=== PATIENT | female | born 1960 | race African-American/Black ===

== ENCOUNTER 2017-04-07 17:14 | Emergency (ER) | payer MEDICAID ==
[~2017-04-07] VITALS: Ht 167.6 cm; Wt 115.0 kg
[~2017-04-07 17:14] MED LIST: CYCL1TAB29 PO; IBUP800T23 PO; RANI150T PO
[2017-04-07 17:43] VITALS: PULSE 94; RESP 18; TEMP 98.7; O2SAT 93
[2017-04-07] MEDS ORDERED: SODIUM CHLORIDE 0.9% FLUSH 10 ML FLUSH IVF PRN (18:15)
[2017-04-07] MEDS ORDERED: MORPHINE SULFATE 8 MG/ML INJ IV PUSH ONE (18:15)
[2017-04-07] MEDS ORDERED: ONDANSETRON HCL 4 MG/2 ML VIAL IV PUSH ONE (18:15)
--- NOTE | 2017-04-07 18:26 | PD ---
HPI . Left hip pain Chief Complaint: Syncope/Near-Syncope Time Seen by Provider: 18:05 Travel History International Travel<30 days: No Contact w/Intl Traveler<30days: No Traveled to known affect area: No History of Present Illness HPI This patient presents with a chief complaint of left hip pain. She states that she was out in the heat all morning was standing in line for food at the [facility] at about 11 AM. She states that she became very nauseous and dizzy and passed out. She fell and landed on her left hip. She comes in complaining with pain in the hip. She states that she has arthritis in her left hip and needs to have a hip replacement. The fall today exacerbated her chronic pain. She states that she went home and took a nap after the syncopal event. She awakened with the pain and presented to us for treatment at that time. She denies any chest pain or shortness of breath. She does not have a headache. No blurred vision. PFSH Past Medical History Hx Anticoagulant Therapy: No Arthritis: Yes (RA TO HIP) Cardiovascular Problems: No Chemotherapy: No Cerebrovascular Accident: No Diabetes: No Diminished Hearing: No Respiratory: No ?: Not Menopausal: Yes : 3 Para: 3 Miscarriage: 0 : 0 Tubal Ligation: Yes Past Surgical History Gynecologic Surgery: Yes (TUBAL ) Hysterectomy: No Social History Alcohol Use: Yes (OCCAS) Tobacco Use: Yes Substance Use: No (MARAJUIANA ) Allergies-Medications (Allergen,Severity, Reaction): Coded Allergies: No Known Allergies (Verified , 10/19/16) Reported Meds & Prescriptions Reported Meds & Active Scripts Active Ultram (Tramadol HCl) 50 Mg Tab 50 Mg PO Q4H PRN Ranitidine (Ranitidine HCl) 150 Mg Tab 150 Mg PO BID Flexeril (Cyclobenzaprine HCl) 10 Mg Tab 10 Mg PO TID Ibuprofen 800 Mg Tab 800 Mg PO Q8H PRN Review of Systems Except as stated in HPI: all other systems reviewed are Neg General / Constitutional: No: Fever, Chills Eyes: No: Blurred Vision HENT: Positive: Lightheadedness, No: Headaches Cardiovascular: No: Chest Pain or Discomfort Respiratory: No: Shortness of Breath Gastrointestinal: Positive: Nausea, No: Vomiting (nausea prior to the syncopal event. None now.), Diarrhea Musculoskeletal: Positive: Arthralgias Neurologic: Positive: Syncope Physical Exam Narrative GENERAL: Patient was sleeping in no acute distress. She was easily arousable and interacted appropriately with the examiner when she was awakened. SKIN: Warm and dry. HEAD: Atraumatic. Normocephalic. EYES: Pupils equal and round. Extraocular movements intact. ENT: No nasal bleeding or discharge. Mucous membranes pink and moist. NECK: Trachea midline. Neck supple. CARDIOVASCULAR: Regular rate and rhythm. RESPIRATORY: No accessory muscle use. GASTROINTESTINAL: Abdomen soft, non-tender, nondistended. MUSCULOSKELETAL: No obvious deformities. No edema. Tender in the left groin. Pain with log rolling of the left hip. No shortening or malrotation. Distally neurovascularly intact. NEUROLOGICAL: Awake and alert. No obvious cranial nerve deficits. Motor grossly within normal limits. Normal speech. PSYCHIATRIC: Appropriate mood and affect; insight and judgment normal. Data Data Last Documented VS Vital Signs Date Time Temp Pulse Resp B/P (MAP) Pulse Ox O2 Delivery O2 Flow Rate FiO2 04/07/17 20:08 98.6 89 17 131/71 (91) 94 04/07/17 17:43 Room Air Orders Orders Electrocardiogram (04/07/17 18:09) Basic Metabolic Panel (Bmp) (04/07/17 18:09) Complete Blood Count With Diff (04/07/17 18:09) Iv Access Insert/Monitor (04/07/17 18:09) Sodium Chloride 0.9% Flush (Ns Flush) (04/07/17 18:15) Hip, Uni(Ap&Lat) W Ap Pelvis (04/07/17 18:09) Morphine Inj (Morphine Inj) (04/07/17 18:15) Ondansetron Inj (Zofran Inj) (04/07/17 18:15) Labs Laboratory Tests Test 04/07/17 18:16 White Blood Count 9.5 TH/MM3 Red Blood Count 4.48 MIL/MM3 Hemoglobin 12.9 GM/DL Hematocrit 38.3 % Mean Corpuscular Volume 85.6 FL Mean Corpuscular Hemoglobin 28.8 PG Mean Corpuscular Hemoglobin Concent 33.6 % Red Cell Distribution Width 14.0 % Platelet Count 338 TH/MM3 Mean Platelet Volume 8.8 FL Neutrophils (%) (Auto) 70.5 % Lymphocytes (%) (Auto) 20.7 % Monocytes (%) (Auto) 6.5 % Eosinophils (%) (Auto) 1.7 % Basophils (%) (Auto) 0.6 % Neutrophils # (Auto) 6.7 TH/MM3 Lymphocytes # (Auto) 2.0 TH/MM3 Monocytes # (Auto) 0.6 TH/MM3 Eosinophils # (Auto) 0.2 TH/MM3 Basophils # (Auto) 0.1 TH/MM3 CBC Comment DIFF FINAL Differential Comment Blood Urea Nitrogen 21 MG/DL Creatinine 1.71 MG/DL Random Glucose 98 MG/DL Calcium Level 9.3 MG/DL Sodium Level 138 MEQ/L Potassium Level 4.1 MEQ/L Chloride Level 105 MEQ/L Carbon Dioxide Level 23.8 MEQ/L Anion Gap 9 MEQ/L Estimat Glomerular Filtration Rate 38 ML/MIN MDM Medical Decision Making Medical Screen Exam Complete: Yes Emergency Medical Condition: Yes Interpretation(s) Normal sinus rhythm with no acute ischemic change. Differential Diagnosis My differential diagnosis of syncope includes but is not limited to cardiac arrhythmia, hypovolemia, anemia, neurological catastrophe, vasovagal response Differential diagnosis of extremity trauma includes but is not limited to fracture, sprain or strain, dislocation, contusion Narrative Course This patient presents with the chief complaint of left hip pain. As known osteoarthritis of her left hip. She had a syncopal episode today and fell and landed on her left hip. I have ordered an x-ray of her hip. I have also ordered a syncopal workup. Last Impressions Hip and Pelvis X-Ray 04/07/17 1809 Signed Impressions: Service Date/Time: Friday, April 07, 2017 18:21 - CONCLUSION: 1. There continues to be extensive chronic changes involving both hip joints without significant change compared to 2015. 2. No acute fracture or joint dislocation. Vel Ambrocio MD CBC & BMP Diagram 04/07/17 18:16 Calcium Level 9.3 Her syncope was probably heat related. Diagnosis Primary Impression: Left hip pain Additional Impression: Syncope Qualified Codes: R55 - Syncope and collapse Patient Instructions: Arthritis (ED), General Instructions, Syncope (DC) Med/Other Pt SpecificInfo: Prescription(s) given Scripts Tramadol (Ultram) 50 Mg Tab 50 MG PO Q4H Y for PAIN, #12 TAB 0 Refills Prov: Carol Warren MD 04/07/17 Disposition: 01 DISCHARGE HOME Condition: Stable Carol Warren MD Apr 07, 2017 18:26
[2017-04-07 18:46] LABS: AUTOMATED NEUTROPHIL # 6.7 TH/MM3 (1.8-7.7); BASOPHIL # 0.1 TH/MM3 (0-0.2); BASOPHIL % 0.6 % (0.0-2.0); EOSINOPHIL # 0.2 TH/MM3 (0-0.4); EOSINOPHIL % 1.7 % (0.0-4.0); HEMATOCRIT 38.3 % (35.0-46.0); HEMO FLAGS DIFF FINAL; LYMPH % 20.7 % (9.0-44.0); MEAN CELL VOLUME 85.6 FL (80.0-100.0); MEAN CORPUSCULAR HEMOGLOBIN 28.8 PG (27.0-34.0); MEAN CORPUSCULAR HGB CONC 33.6 % (32.0-36.0); MONO % 6.5 % (0.0-8.0); NEUT % 70.5 % (16.0-70.0); PLATELET COUNT 338 TH/MM3 (150-450); RED BLOOD COUNT 4.48 MIL/MM3 (4.00-5.30); WHITE BLOOD COUNT 9.5 TH/MM3 (4.0-11.0)
--- NOTE | 2017-04-07 18:47 | RADRPT ---
EXAM DATE/TIME: 04/07/2017 18:21 [facility] COMPARISON: HIP LEFT (AP&LAT 2/3VWS) W AP PELVIS, August 13, 2016, 11:38. INDICATIONS : Patient fell today and complains of left hip pain. MEDICAL HISTORY : Osteoarthritis. SURGICAL HISTORY : None. ENCOUNTER: Initial ACUITY: 1 day PAIN SCORE: Non-responsive. LOCATION: chest Hip FINDINGS: Examination of the left hip was performed with AP Pelvis. This is compared to the prior exam from 201 6. There continues to be prominent and advanced sclerotic and subchondral changes involving both hip joints. There is significant space narrowing. No acute fracture or joint dislocation. The appearance again suggests chronic avascular necrosis versus severe osteoarthritis bilaterally.. No significant c hanges compared to the prior exam. There is good alignment the SI joints and pubic symphysis. CONCLUSION: 1. There continues to be extensive chronic changes involving both hip joints without significant plascencia ge compared to 2015. 2. No acute fracture or joint dislocation. Vel Ambrocio MD on April 07, 2017 at 18:43 Board Certified Radiologist. This report was verified electronically.
[2017-04-07] MEDS ORDERED: ULTR50TA5 PO (19:01)
[2017-04-07 19:05] LABS: BICARBONATE 23.8 MEQ/L (21.0-32.0); POTASSIUM 4.1 MEQ/L (3.5-5.1)
[2017-04-07 20:08] VITALS: BP 131/71; TEMP 98.6
--- NOTE | 2017-04-08 08:29 | EKG ---
Date Performed: 04/07/2017 Time Performed: 19:07:22 PTAGE: 56 years EKG: Sinus rhythm MINIMAL VOLTAGE CRITERIA FOR LVH, CONSIDER NORMAL VARIANT NONSPECIFIC T-WAVE ABNORMALITY BORDERLINE ECG NO PREVIOUS TRACING DOCTOR: Zurdo Christensen Interpretating Date/Time 04/08/2017 08:26:54
== END 2017-04-07 20:11 | disposition home or self-care (01) ==
LOC: NEPC 17:14
DX: M25.552 Pain in left hip (principal); R55 Syncope and collapse; R11.0 Nausea; Z72.0 Tobacco use
CPT/HCPCS: 73502; 80048; 85025; 93005; 96374; 99285; J2270; J2405